=== PATIENT | male | born 1990 | race Two or more races ===

== ENCOUNTER 2018-09-20 12:19 | Emergency (ER) | payer OTHER ==
[2018-09-20 12:24] VITALS: BP 141/73
--- NOTE | 2018-09-20 12:46 | EDPHY ---
General Time Seen by Provider: 09/20/18 12:28 Narrative: CLINICAL IMPRESSION: Left otalgia, dentalgia ASSESSMENT/PLAN: 27-year-old male presents to the emergency department with left otalgia as well as dental pain. On exam he has no evidence of mucopurulent otitis media, otitis externa, TM perforation, cholesteatoma, foreign body, cerumen impaction, mastoiditis, or chondritis. He has significant dental decay, cracked teeth and broken fillings. He reports his ear pain began before his dental pain. He was given penicillin to treat probable early periapical abscess or dental infection. I have emphasized to him that I do not see signs of an ear infection but that he may have referred pain to the ear from his teeth. We also discussed possibility for TMJ discomfort. I encouraged PCP and dental follow-up. Warning signs return to ED sooner discussed in discharge. DIFFERENTIAL DX: Differential includes but not limited to acute otitis media, otitis externa, cerumen impaction, foreign body, TM perforation, referred otalgia, pharyngitis, tonsillitis, dentalgia, periapical abscess CHIEF COMPLAINT: Left ear pain and dental pain HPI: 27-year-old male presents to the emergency department complaining of left ear pain. He states his left ear since bothering him for a week. For last 2 days he has had upper and lower left-sided dental pain. He is tolerating secretions , eating and drinking well, no reported fever or chills. No reports of discharge or drainage from the ear, hearing loss, tinnitus, dizziness or vertigo. No foreign body sensation to the ear. No ear trauma. No prior surgery or injury. He is planning on flying tonight. PAST MEDICAL HISTORY: No reported significant past medical surgical family or social history. See triage summary and nurse notes for addition applicable history REVIEW OF SYSTEMS: A full 10 point review of systems was negative except for those mentioned in HPI. PHYSICAL EXAM: General Appearance: Alert, oriented, appropriate, cooperative, NAD, well hydrated, non-toxic appearing, VSS, no hypoxia. HEENT: TMs are clear bilaterally no perforation or FB, no injection, no evidence of serous or mucopurulent otitis. No cerumen impaction. No TM perforation or foreign body. Oropharynx clear is no erythema or exudates, no tonsillar hypertrophy or asymmetry. Very poor dentition throughout with multiple dental caries, broken teeth, and cracked feelings from prior cavities. No e/o ANUG, gingivobuccal abscess. Neck: Supple, nontender, no lymphadenopathy, no midline pain, FROM, no meningismus. MEDICAL DECISION MAKING: Patient was seen independently. Secondary supervising physician at time of evaluation was: Dr. Alvarado . Diagnosis: Left otalgia, dentalgia. New, requires workup Summary: See Assessment and Plan for summary of ED visit Patient Progress: Stable for discharge. - History Smoking Status: Never smoked - Objective Vital Signs: Initial Vital Signs Temperature (C) 36.9 C 09/20/18 12:21 Heart Rate 70 09/20/18 12:21 Respiratory Rate 17 09/20/18 12:21 Blood Pressure 141/73 H 09/20/18 12:21 O2 Sat (%) 95 09/20/18 12:21 O2 Delivery Mode Room Air Allergies/Adverse Reactions: No Known Allergies Allergy (Unverified 09/20/18 12:21) Home Medications: Medication Instructions Recorded Penicillin V Potassium [Penicillin 500 mg PO QID #28 tab 09/20/18 VK] Departure - Departure Disposition: Home, Routine, Self-Care Clinical Impression: Otalgia of left ear, Dentalgia Condition: Good Instructions: Penicillin V (By mouth), Earache (ED), Toothache (ED) Additional Instructions: YOU SHOULD BE OK TO FLY TONIGHT. YOU HAVE NO SIGNS OF AN EAR INFECTION BUT EAR PAIN CAN BE REFERRED FROM THE THROAT, TEETH OR TMJ JOINT. WE ARE GIVING YOU PENICILLIN FOR DENTAL PAIN. PLEASE FOLLOWUP WITH A DENTIST. RETURN TO ER FOR WORSENING OR SEVERE PAIN, HIGH FEVERS, OR ANY OTHER CONCERNS. Referrals: NONE *PRIMARY CARE P,. [Primary Care Provider] - As per Instructions [facility],. [Clinic] - 2-3 days, call for appt. Prescriptions: Penicillin V Potassium [Penicillin VK] 500 mg PO QID #28 tab
== END 2018-09-20 12:50 | disposition home or self-care (01) ==
DX: H92.02 Otalgia, left ear (principal); K08.89 Other specified disorders of teeth and supporting structures